=== PATIENT | female | born 2000 | race Caucasian/White ===

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

== ENCOUNTER → 2020-05-03 | Outpatient (CLI) | payer OTHER | LOC: M LDO 17:09 | PROVIDERS: ATTEND Obstetrics & Gynecology | DX: O36.8120 Decreased fetal movements, second trimester, not applicable or unspecified (principal); W19.XXXA Unspecified fall, initial encounter; Y92.481 Parking lot as the place of occurrence of the external cause; Z3A.22 22 weeks gestation of pregnancy | CPT/HCPCS: G0378; G0463 ==

== ENCOUNTER 2020-08-29 07:55 | Inpatient (IN) | payer OTHER ==
[~2020-08-29] VITALS: Ht 175.3 cm; Wt 86.3 kg
[2020-08-29] VITALS (16 sets, daily range): BP systolic 109–130; BP diastolic 57–81
[2020-08-29] MEDS ORDERED: AMOX500T2 PO (08:31)
[2020-08-29] MEDS ORDERED: PRENTAB9 PO (08:31)
[2020-08-29] MEDS ORDERED: PYRI1TAB5 PO (08:31)
[2020-08-29] MEDS ORDERED: AMOXICILLIN 500 MG CAP PO SCH (09:00)
--- NOTE | 2020-08-29 10:21 | HPEPDOC ---
Obstetrical History & Physical General Date of Admission Aug 29, 2020 at 07:55 History of Present Illness 20yo at 39+0wks presenting for social IOL. 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 Denies ctx's, VB, LOF, or DFM. Chief Complaint: Induction of labor Information Provided By: Patient Care Care: Good Care Dating Final EDC: Sep 05, 2020 Final EDC for Daily Update: Sep 05, 2020 Final EDC by: LMP (c/w 11+0wk U/S on [id number]) EGA at Admission: 39 (+0) Antepartum Course Diagnos(e)s Excessive weight gain in Poor social support Height (inches): 69 Pre- weight (lbs.): 145 Admission Weight (lbs.): 188 Change in Weight (lbs.): 43 Past Medical History Past Obstetrical History : Past Obstetrical History: [employer] History: No pertinent history Past Medical History Medical History Recurrent UTIs Surgical History: [place] teeth Family History Significant Family History: Diabetes (PGM) Social History Marital Status: Family situation: Spouse/partner deployed (spouse deploying [id number]) Psychosocial History: No pertinent psych hx * Smoker: non-smoker Alcohol: Denies Drugs: denies Abuse Violence Screening Have you been hit/kicked/slapp: No Have you been sexually assault: No Imunizations Tdap status: current ([id number]) Influenza Status: current ([id number]) Allergies Coded Allergies: No Known Allergies (Unverified , 08/29/20) Medications Scheduled Amoxicillin/Potassium Clav (Amox-Clav 500-125 mg Tablet) 1 Each Tablet, 1 TAB PO BID Phenazopyridine HCl (Pyridium) 200 Mg Tablet, 1 TAB PO TID for urinary discomfort No.137/Iron/Folic Acd ( Vitamin Tablet) 1 Each Tablet, 1 TAB PO DAILY Physical Examination Physical Examination GENERAL: Alert and oriented times three. ABDOMEN: Gravid and non-tender to touch. FETUS: Is vertex (VTX) by sterile vaginal examination (SVE), fetus is vertex (VTX) by Zheng. HEART RATE: well-perfused LUNGS: no exaggerated respiratory effort appreciated : NEFG, SVE /-3, no abnml vaginal discharge, no VB EXTREMITIES: No edema. Laboratory Data 24H LABS Laboratory Tests 2 08/29/20 08:25: Serology Scanned Report Hepatitis B Testing Urine Culture: No Growth Pertinent Laboratoy Data Blood Type: O+ RBC Antibody Screen: Negative HIV: Negative Hepatitis B: Negative Rapid Plasma Reagin: Nonreactive Rubella: Immune Varicella: Immune Chlamydia/Gonorrhea: Negative Group B Streptococcus: Negative Quad Screen Test: Declined Cystic Fibrosis: Negative Anatomy Ultrasound Ultrasound Date: Apr 21, 2020 Placenta Location: Anterior Normal Anatomy: No (b/l choriod plexus cysts) Placenta Previa: No Other Ultrasounds [id number] - choriod plexus cysts resolved, missing anatomy identified and normal Vaginal Examination Dilation: 1cm Effacement: 70% Station: -3 Cervical Consistency: Medium Cervical Position: Posterior Presentation: Cephalic presentation Assessment Heart Rate (FHR): 135 Variability: Moderate Accelerations: Positive Decelerations: None Tocometer Contractions: Yes Frequency: irregular Multi-drug resistant Organism: No history of MDRO Assessment/Plan Assessment Chelita is a 20yo at 39+0wks presenting for IOL for social indications. GBS neg. EFW 3200g. SVE /-3. NST reactive. Plan Admit and orient. Post Splitter and consent. Diet: regular as tolerated until epidural/active labor then transition to clears Group B Streptococcus (GBS) negative. Labs and intravenous (IV) per unit protocol. Counseled on induction of labor (IOL). Lactated Ringers (LR): 125 mL/hr. Anticipate normal spontaneous delivery (). C-S as appropriate. Labor and Delivery Counseling In admission questioning, it became evident that patient's spouse was originally set to deploy on 30NOV but was able to get pushed back to 03DEC. However, patient did not have social support for when spouse leaves. Patient counseled on risk of induction being increased risk of section and we discussed that even if spontaneous labor occurs she could need a section. We discussed that she needs support for the first few weeks at home to include assisting in activities of daily living, assistance with safe care for while battling fatigue, and also driving to/from appointments. We discussed that inductions can take several days and that there is potential that spouse may have to leave before patient and are discharged home from hospital. Ultimately, patient was counseled that just undergoing IOL today would not address her social concerns and that those concerns needed to be addressed CRYSTAL. Patient was offered to go home and work on discharge support plan. After patient and spouse were given time to discuss, she reports that she will have her aomsob-od-him available to drive her to appointments for the first 2 weeks, her unit NCOs would be available to assist with driving, and that possibly her mother would be able to come stay with her starting on [id number]. Patient requested to proceed with IOL today acknowledging increased risk of section than if she had just awaited spontaneous labor. We discussed IOL methods and patient elects to start with cytotec. BRANDON ARTEAGA DO Aug 29, 2020 10:21
[2020-08-29] MEDS ORDERED: AMOX500C PO (10:46)
[2020-08-29] MEDS: miSOPROStol 50 MCG 1/2 TAB (S0191) PO SCH ×3 (10:55→23:38)
[2020-08-29 10:58] LABS: HEMATOCRIT 35.1 % (36.0-47.0); HEMOGLOBIN 11.3 g/dl (12.0-15.5); MEAN CORPUSCULAR HEMOGLOBIN 29.1 pg (27.0-33.0); MEAN CORPUSCULAR HGB CONC 32.2 g/dl (32.0-36.5); MEAN CORPUSCULAR VOLUME 90.5 fl (80.0-96.0); PLATELET COUNT, AUTOMATED 232 10^3/uL (150-450); RED BLOOD COUNT 3.88 10^6/uL (4.00-5.40); WHITE BLOOD COUNT 10.7 10^3/uL (4.0-10.0)
[2020-08-29] MEDS ORDERED: SLF 3 ML SYR IV PRN (18:15)
[2020-08-29] MEDS: AMOXICILLIN 500 MG CAP PO SCH (20:56)
[2020-08-29] MEDS: SLF 3 ML SYR IV SCH (23:39)
[2020-08-30] VITALS (36 sets, daily range): BP systolic 98–150; BP diastolic 55–92
[2020-08-30] MEDS: miSOPROStol 50 MCG 1/2 TAB (S0191) PO SCH (04:00)
[2020-08-30] MEDS: SLF 3 ML SYR IV SCH (06:00)
--- NOTE | 2020-08-30 08:23 | IPNPDOC ---
Obstetrical Progress Note Date of Service Aug 30, 2020 Subjective Patient reports feeling well. She was able to get some sleep overnight. Denies complaints at this time. Objective Vital Signs Date Time Temp Pulse Resp B/P (MAP) Pulse Ox O2 Delivery O2 Flow Rate FiO2 08/30/20 04:37 67 16 114/59 (77) 08/29/20 23:16 98.0 Assessment Heart Rate Tracing: Category I Tocometer Contractions: Yes Frequency: irregular Sterile Vaginal Examination Dilation: 3 cm Effacement (%): 80% Station: -2 Cervical Consistency: Soft Cervical Position: Posterior Postion/Presentation: Cephalic presentation Assessment and Plan Status: Reassuring Group B Streptococcus: Negative Anticipate: Vaginal Delivery Additional Comments Patient has progressed to now 3-4/80/-2 after 3 doses of cytotec. FHRT cat I. Will allow to shower and eat breakfast then start pitocin protocol. Consider AROM once able for additional augmentation of labor. Patient desires to proceed, safe to continue. BRANDON ARTEAGA DO Aug 30, 2020 08:23
[2020-08-30] MEDS ORDERED: OXYTOCIN DRIP 30 UNITS in IV 1 EA IV SCH ×2 (08:30→16:15)
[2020-08-30] MEDS ORDERED: LR 1,000 ML IV SCH (08:30)
[2020-08-30] MEDS: AMOXICILLIN 500 MG CAP PO SCH ×2 (09:48→20:41)
--- NOTE | 2020-08-30 11:19 | IPNPDOC ---
Text Note Date of Service The patient was seen on 08/30/20. NOTE Went to check on progress. A couple late decels seen on the monitor. Cervix: 4/75/-2. AROM performed productive of clear fluid. FHR responded well to exam and scalp stim. There is moderate variability and +accels. Cat II tracing due to previous late decels, which have resolved. IV fluids bolus given. Pitocin at 4mU. Will continue to titrate to effect. Safe to proceed. DO Brandyn VS,Lore, I+O VS, Lore, I+O Vital Signs Date Time Temp Pulse Resp B/P (MAP) Pulse Ox O2 Delivery O2 Flow Rate FiO2 08/30/20 04:37 67 16 114/59 (77) 08/29/20 23:16 98.0 I&O- Last 24 Hours up to 6 AM 08/30/20 06:00 Intake Total 1800 ml Balance 1800 ml REYNALDO RUSHING DO Aug 30, 2020 11:19
[2020-08-30] MEDS ORDERED: FENTANYL 2MCG/ML ROPIVACAINE 0.2% IN 0.9% NACL 100ML IVBAG As Ordered ONE (11:59)
[2020-08-30] MEDS ORDERED: ePHEDrine SULFATE 25 MG/5 ML(5MG/ML) SYRINGE IV PRN (13:00)
[2020-08-30] MEDS ORDERED: REFRIGERATOR IV KEYS XX PRN (13:00)
[2020-08-30] MEDS ORDERED: NALOXONE INJ 0.4MG/1ML VIAL (J2310 PER 1MG) IV PRN (13:00)
[2020-08-30] MEDS ORDERED: EPIDURAL COMMENT XX SCH (13:00)
[2020-08-30] MEDS ORDERED: FENTANYL/ROPIVACAINE/NACL BAG 100 ML EPIDURAL SCH (13:00)
[2020-08-30] MEDS ORDERED: ONDANSETRON 4MG/2ML VIAL IV PRN ×2 (13:00→16:00)
[2020-08-30] MEDS ORDERED: LACTATED RINGER'S 1000 ML IV PRN (13:00)
[2020-08-30] MEDS ORDERED: diphenhydrAMINE 50MG/ML VIAL (J1200) IV PRN (13:00)
[2020-08-30] MEDS ORDERED: EPIDURAL/PCA KEYS XX PRN (13:00)
--- NOTE | 2020-08-30 14:48 | IPNPDOC ---
Text Note Date of Service The patient was seen on 08/30/20. NOTE Questionable repetitive variable vs late decels on monitor. Patient received epidural approximately 2 hours ago. Blood pressure is stable. Cervix: 6/C/0. heart rate acceleration with scalp stimulation. Positional changes and IV fluid bolus initiated. FHR recovered after pitocin was decreased from 6 to 3mU. Early decels present. Transitioning into active phase labor. Will need to monitor tolerance closely. All patient questions answered. Reynaldo Ahumada DO VS,Lore, I+O VS, Lore, I+O Vital Signs Date Time Temp Pulse Resp B/P (MAP) Pulse Ox O2 Delivery O2 Flow Rate FiO2 08/30/20 04:37 67 16 114/59 (77) 08/29/20 23:16 98.0 I&O- Last 24 Hours up to 6 AM 08/30/20 06:00 Intake Total 1800 ml Balance 1800 ml REYNALDO AHUMADA DO Aug 30, 2020 14:48
[2020-08-30] MEDS ORDERED: ACETAMINOPHEN TAB 650MG DOSE (2X325MG) PO PRN (16:00)
[2020-08-30] MEDS ORDERED: DOCUSATE SODIUM 100 MG CAP PO PRN (16:00)
[2020-08-30] MEDS ORDERED: ACETAMINOPHEN 500 MG TAB PO PRN (16:00)
[2020-08-30] MEDS ORDERED: MEASLES,MUMPS,RUBELLA VACCINE INJ (MMR-II) (90707) SC SCH (16:00)
[2020-08-30] MEDS ORDERED: BENZOCAINE 20% HEMORRHOIDAL OINTMENT 28GM TUBE TOP PRN (16:00)
[2020-08-30] MEDS ORDERED: RHOGAM 300 MCG (1500 IU) INJ (J2790) IM SCH (16:00)
--- NOTE | 2020-08-30 16:07 | DNPDOC ---
[facility] Delivery Note Delivery Note DATE OF DELIVERY: 30Aug2020 at ~1530 PREDELIVERY DIAGNOSIS: 39+1 weeks gestation and social IOL POST DELIVERY DIAGNOSIS: Delivered. PROCEDURE: Spontaneous vaginal delivery DIE MAKER BENCH STAMPING: Dr. Ahumada ANESTHESIA: Epidural. ESTIMATED BLOOD LOSS: 400 mL. FINDINGS: 8 pound 5 ounce male infant, Score 9/9, loose nuchal cord X1 DELIVERY SUMMARY: Chelita progressed rapidly to C/C/+2 and felt a strong urge to push. The bed was broken down and she was prepped for delivery. With excellent effort over about a 20 minute, her baby delivered. Presentation was AMANDA with re stitution to LOT. The right anterior shoulder delivered with gentle traction followed by the remainder of the body. There was a loose nuchal cord that was delivered through and reduced manually. The was dried and stimulated on the field and a bulb suction was used. The infant was placed on the maternal abdomen. The three vessel umbilical cord was then clamped and cut by the FOB after appropriate time delay and under my direction. Third stage was completed with gentle traction on on the cord and it was productive of an intact placenta. The uterus was firmed with massage and pitocin was administered IV bolus. Inspection of the cervix, vagina, labia, and perineum revealed bilateral sublabial lacerations. These lacerations were all repaired with 3-0 vicryl suture in the usual fashion. There was excellent cosmesis and hemostasis after the repairs. The fundus was palpated again and was firm. Sponge, instrument, and needle counts were correct X2. Mother and stable when I left the room. DO СЕРГЕЙ Sierra CHRISTOPHER J. DO Aug 30, 2020 16:07
[2020-08-30] MEDS: IBUPROFEN 800 MG TAB PO PRN (18:23)
[2020-08-30 19:01] LABS: HEMATOCRIT 32.7 % (36.0-47.0); HEMOGLOBIN 10.4 g/dl (12.0-15.5); MEAN CORPUSCULAR HEMOGLOBIN 29.1 pg (27.0-33.0); MEAN CORPUSCULAR HGB CONC 31.8 g/dl (32.0-36.5); MEAN CORPUSCULAR VOLUME 91.3 fl (80.0-96.0); PLATELET COUNT, AUTOMATED 212 10^3/uL (150-450); RED BLOOD COUNT 3.58 10^6/uL (4.00-5.40); WHITE BLOOD COUNT 17.6 10^3/uL (4.0-10.0)
[2020-08-31] MEDS: IBUPROFEN 600MG TAB PO PRN (05:34)
[2020-08-31 06:24] VITALS: BP 129/59
--- NOTE | 2020-08-31 08:07 | IPNPDOC ---
Progress Note Date of Service: Aug 31, 2020 Progress Note 20 yo G1 now P1 PPD#1 s/p uncomplicated on 31Aug2020 at ~1500 after being admitted for a IOL for social reasons. Overnight, Chelita reports doing well. She is ambulating, voiding spontaneously, and tolerating a regular diet. Lochia is minimal. Vitals - VSS, afebrile General - AAOX3, sitting up in bed, NAD Abdomen - Fundus firm at U-2. No fundal tenderness Extremities - No edema Ms. Snider is doing well and is making an appropriate recovery. If she continues to meet all criteria she will be a candidate for discharge tomorrow. Reynaldo Ahumada DO VS, I&O, 24H, Fishbone Vital Signs/I&O Vital Signs Date Time Temp Pulse Resp B/P (MAP) Pulse Ox O2 Delivery O2 Flow Rate FiO2 08/31/20 06:24 99.0 95 17 129/59 (82) 08/30/20 19:35 98 I&O- Last 24 Hours up to 6 AM 08/31/20 06:00 Intake Total 3539.2 ml Output Total 1400 ml Balance 2139.2 ml Laboratory Data 24H LABS Laboratory Tests 2 08/30/20 18:53: Nucleated Red Blood Cells % (auto) 0.0 CBC/BMP Laboratory Tests 08/30/20 18:53 REYNALDO AHUMADA DO Aug 31, 2020 08:07
[2020-08-31] MEDS: AMOXICILLIN 500 MG CAP PO SCH ×2 (08:54→20:56)
[2020-08-31] MEDS: PRENATAL VITAMINS CHEWABLE TABLET PO SCH (08:54)
[2020-08-31] MEDS ORDERED: INFLUENZA QUADRIVALENT PF VACCINE 0.5ML SYRINGE IM ONE (09:00)
[2020-08-31] MEDS: IBUPROFEN 800 MG TAB PO PRN (14:53)
[2020-08-31 18:04] VITALS: BP 118/59
[2020-09-01] MEDS: IBUPROFEN 600MG TAB PO PRN (05:51)
[2020-09-01 06:11] VITALS: BP 121/66
[2020-09-01] MEDS ORDERED: AMER20OI TOP (07:09)
[2020-09-01] MEDS ORDERED: DOCU100C16 PO (07:09)
[2020-09-01] MEDS ORDERED: IBUP-1022 PO (07:09)
[2020-09-01] MEDS: PRENATAL VITAMINS CHEWABLE TABLET PO SCH (08:58)
--- NOTE | 2020-09-01 13:48 | DSES ---
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 She had an epidural in place. Spontaneous vaginal delivery of a male 8 pounds 5 ounces, of 9 and 9 at one and five minutes respectively. Cord wrapped around the neck x1. She had bilateral labial tears, which were repaired in the usual fashion. DISCHARGE VITAL SIGNS: Blood pressure on discharge 121/66, respirations 16, pulse 91, temperature 98.1. LABORATORY DATA: Her admitting hemoglobin 11.3, hematocrit 35.1, and platelets 232,000. Discharge hemoglobin 10.4, hematocrit 32.7, and platelets were 212,000. DISCHARGE DISPOSITION: We discussed phlebitis, cystitis, mastitis, metritis, cellulitis, diet, exercise, pain management; perineal, breast, and wound care. Medications are to be picked up at [place]. Six week checkup at [facility]. All questions were answered, 20 minute discussion. Patient and baby were discharged as a unit.
== END 2020-09-01 12:50 | disposition home or self-care (01) | DRG 807 ==
LOC: M LDI 07:55 → M OBS 08-30 19:38
PROVIDERS: ADMIT Registered Nurse; ATTEND Obstetrics & Gynecology
PROC: 3E0P7GC Introduction of Other Therapeutic Substance into Female Reproductive, Via Natural or Artificial Opening (ICD-10-PCS; 2020-08-29)
PROC: 10E0XZZ Delivery of Products of Conception, External Approach (ICD-10-PCS; principal; 2020-08-30)
PROC: 0HQ9XZZ Repair Perineum Skin, External Approach (ICD-10-PCS; 2020-08-30)
PROC: 10907ZC Drainage of Amniotic Fluid, Therapeutic from Products of Conception, Via Natural or Artificial Opening (ICD-10-PCS; 2020-08-30)
DX: O26.03 Excessive weight gain in pregnancy, third trimester (principal); Z37.0 Single live birth; Z3A.39 39 weeks gestation of pregnancy; O76 Abnormality in fetal heart rate and rhythm complicating labor and delivery; O70.0 First degree perineal laceration during delivery; O69.81X0 Labor and delivery complicated by cord around neck, without compression, not applicable or unspecified

== ENCOUNTER 2021-02-13 08:15 | Emergency (ER) | payer OTHER ==
[~2021-02-13] VITALS: Ht 175.3 cm; Wt 73.2 kg
[~2021-02-13 08:15] MED LIST: AMER20OI TOP; AMOX500C PO; AMOX500T2 PO; DOCU100C16 PO; IBUP-1022 PO; PRENTAB9 PO; PYRI1TAB5 PO
[2021-02-13] MEDS ORDERED: DIFL150T PO (10:01)
[2021-02-13 10:49] VITALS: BP 107/66
== END 2021-02-13 11:04 | disposition home or self-care (01) ==
LOC: M ED 08:15
DX: B37.3 Candidiasis of vulva and vagina (principal); N93.9 Abnormal uterine and vaginal bleeding, unspecified; Z97.5 Presence of (intrauterine) contraceptive device; Z87.440 Personal history of urinary (tract) infections

== ENCOUNTER 2021-06-21 09:10 | Inpatient (IN) | payer OTHER ==
[~2021-06-21] VITALS: Ht 175.3 cm; Wt 71.8 kg
[~2021-06-21 09:10] MED LIST changes: +DIFL150T PO
[2021-06-21 09:53] LABS: HEMOGLOBIN 13.3 g/dl (12.0-15.5); MEAN CORPUSCULAR HEMOGLOBIN 28.9 pg (27.0-33.0); MEAN CORPUSCULAR HGB CONC 33.3 g/dl (32.0-36.5); PLATELET COUNT, AUTOMATED 249 10^3/uL (150-450); WHITE BLOOD COUNT 6.5 10^3/uL (4.0-10.0)
[2021-06-21 10:20] LABS: HCG, SERUM QUALITATIVE NEGATIVE (NEGATIVE)
[2021-06-21 10:27] LABS: ACETAMINOPHEN LEVEL < 2.0 UG/ML (10.0-30.0); ALBUMIN 3.9 GM/DL (3.2-5.2); ALT/SGPT 16 U/L (12-78); BILIRUBIN,DIRECT < 0.1 MG/DL (0.0-0.2); BILIRUBIN,TOTAL 0.4 MG/DL (0.2-1.0); BLOOD UREA NITROGEN 11 MG/DL (7-18); CALCIUM LEVEL 8.9 MG/DL (8.5-10.1); CARBON DIOXIDE LEVEL 25 MEQ/L (21-32); CHLORIDE LEVEL 108 MEQ/L (98-107); CREATININE FOR GFR 0.71 MG/DL (0.55-1.30); ETHYL ALCOHOL (ETHANOL) < 0.003 % (0.000-0.010); GLOMERULAR FILTRATION RATE > 60.0 (>60); GLUCOSE, FASTING 89 MG/DL (70-100); POTASSIUM SERUM 3.9 MEQ/L (3.5-5.1); SALICYLATE LEVEL < 1.7 MG/DL (5.0-30.0); SODIUM LEVEL 140 MEQ/L (136-145)
[2021-06-21] MEDS ORDERED: CEPH500C PO (11:03)
[2021-06-21 11:34] LABS: AMPHETAMINES LEVEL URINE NEGATIVE (NEGATIVE); BARBITURATES URINE NEGATIVE (NEGATIVE); BENZODIAZEPINES URINE NEGATIVE (NEGATIVE); CANNABINOIDS URINE NEGATIVE (NEGATIVE); COCAINE METABOLITE URINE NEGATIVE (NEGATIVE); METHADONE URINE NEGATIVE (NEGATIVE); OPIATES URINE NEGATIVE (NEGATIVE); PHENCYCLIDINE URINE NEGATIVE (NEGATIVE)
[2021-06-21] MEDS ORDERED: ACETAMINOPHEN TAB 650MG DOSE (2X325MG) PO ONE ×2 (13:05→23:00)
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
[2021-06-21] MEDS ORDERED: HOME MED LIST COMPLETE! XX SCH (18:15)
[2021-06-22 03:27] LABS: RSV AMPLIFICATION NEGATIVE (NEGATIVE)
[2021-06-22] MEDS ORDERED: traZODone 50 MG TAB PO PRN ×2 (03:50→04:15)
[2021-06-22] MEDS ORDERED: MAALOX 30 ML SUSP *UDC PO PRN ×2 (03:50→04:15)
[2021-06-22] MEDS ORDERED: MOM 30ML SUSPENSION UDC PO PRN ×2 (03:50→04:15)
[2021-06-22] MEDS ORDERED: ACETAMINOPHEN TAB 650MG DOSE (2X325MG) PO PRN ×2 (03:50→04:15)
[2021-06-22] MEDS ORDERED: hydrOXYzine 50 MG TAB PO PRN ×2 (03:55→04:15)
[2021-06-22 04:23] VITALS: BP 107/58
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
[2021-06-22] MEDS: BACTRIM 160MG/800MG DS TAB PO SCH ×2 (10:08→21:47)
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
[2021-06-22 17:59] VITALS: BP 126/62
[2021-06-23 06:00] VITALS: BP 143/66
[2021-06-23] MEDS: BACTRIM 160MG/800MG DS TAB PO SCH (09:41)
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
== END 2021-06-23 13:00 | disposition home or self-care (01) | DRG 881 ==
LOC: M ED 09:10 → M PSY 06-22 03:46 → M ED 06-22 04:08 → M PSY 06-22 15:44
PROVIDERS: ADMIT Student in an Organized Health Care Education/Training Program; ATTEND Psychiatry & Neurology Psychiatry
DX: F43.21 Adjustment disorder with depressed mood (principal); Z87.891 Personal history of nicotine dependence

== ENCOUNTER 2021-10-25 20:37 | Emergency (ER) | payer OTHER ==
[~2021-10-25] VITALS: Ht 175.3 cm; Wt 77.3 kg
[~2021-10-25 20:37] MED LIST changes: +CEPH500C PO
[2021-10-26 04:44] LABS: APPEARANCE, URINE CLEAR (CLEAR); BACTERIA, URINE AUTO NEGATIVE (NEGATIVE); BILIRUBIN, URINE AUTO 1+ (NEGATIVE); BLOOD, URINE BLOOD NEGATIVE (NEGATIVE); COLOR, URINE YELLOW (YELLOW); GLUCOSE, URINE (UA) AUTO NEGATIVE (NEGATIVE); KETONE, URINE AUTO 1+ mg/dL (NEGATIVE); LEUKOCYTE ESTERASE, URINE AUTO NEGATIVE (NEGATIVE); MUCUS, URINE LARGE (NEGATIVE); NITRITE, URINE AUTO NEGATIVE (NEGATIVE); PROTEIN, URINE AUTO 1+ mg/dL (NEGATIVE); RBC, URINE AUTO 2 /HPF (0-3); SPECIFIC GRAVITY URINE AUTO 1.035 (1.002-1.035); SQUAMOUS EPITHELIAL CELL UR AU 5 /HPF (0-6); WBC, URINE AUTO 3 /HPF (0-3)
[2021-10-26] MEDS ORDERED: METOCLOPRAMIDE 5 MG TAB PO ONE (07:35)
[2021-10-26] MEDS ORDERED: NS 1,000 ML IV ONE (07:40)
[2021-10-26] MEDS ORDERED: METOCLOPRAMIDE INJ 10MG/2ML VIAL (J2765 PER 1) IV ONE (07:40)
[2021-10-26 08:00] LABS: BASO % 0.1 % (0.0-1.0); HEMATOCRIT 39.7 % (36.0-47.0); HEMOGLOBIN 13.5 g/dl (12.0-15.5); LYMPH # 0.8 10^3/uL (1.5-5.0); LYMPH % 10.6 % (24.0-44.0); MEAN CORPUSCULAR HEMOGLOBIN 29.7 pg (27.0-33.0); MEAN CORPUSCULAR VOLUME 87.3 fl (80.0-96.0); MONO # 0.4 10^3/uL (0.0-0.8); PLATELET COUNT, AUTOMATED 221 10^3/uL (150-450); RED BLOOD COUNT 4.55 10^6/uL (4.00-5.40); WHITE BLOOD COUNT 7.2 10^3/uL (4.0-10.0)
[2021-10-26 08:28] LABS: ALBUMIN 3.7 GM/DL (3.2-5.2); ALT/SGPT 17 U/L (12-78); BILIRUBIN,TOTAL 0.5 MG/DL (0.2-1.0); BLOOD UREA NITROGEN 14 MG/DL (7-18); CALCIUM LEVEL 8.5 MG/DL (8.5-10.1); CARBON DIOXIDE LEVEL 25 MEQ/L (21-32); CHLORIDE LEVEL 105 MEQ/L (98-107); CREATININE FOR GFR 0.79 MG/DL (0.55-1.30); GLOMERULAR FILTRATION RATE > 60.0 (>60); GLUCOSE, FASTING 109 MG/DL (70-100); POTASSIUM SERUM 3.5 MEQ/L (3.5-5.1); SODIUM LEVEL 139 MEQ/L (136-145)
[2021-10-26] MEDS ORDERED: ONDA4TAB6 PO (09:21)
[2021-10-26 09:59] VITALS: BP 122/68
== END 2021-10-26 10:01 | disposition home or self-care (01) ==
LOC: M ED 20:37
DX: O99.280 Endocrine, nutritional and metabolic diseases complicating pregnancy, unspecified trimester (principal); E86.0 Dehydration; Z87.891 Personal history of nicotine dependence; Z3A.00 Weeks of gestation of pregnancy not specified
CPT/HCPCS: 76801; 76817; 80053; 81001; 84702; 85025; 86850; 86900; 86901; 93976; 96361; 96374; 99284; J2765

== ENCOUNTER 2022-05-30 10:50 | Emergency (ER) | payer OTHER ==
[~2022-05-30] VITALS: Ht 175.3 cm; Wt 81.1 kg
[~2022-05-30 10:50] MED LIST changes: +ONDA4TAB6 PO
[2022-05-30] MEDS ORDERED: ONDANSETRON 4MG 2ML VIAL IV ONE (11:50)
[2022-05-30] MEDS ORDERED: NS 1,000 ML IV ONE (11:50)
[2022-05-30] MEDS ORDERED: ACET-907 PO (12:13)
[2022-05-30] MEDS ORDERED: PREN29CH2 PO (12:13)
[2022-05-30 12:21] LABS: BASO % 0.2 % (0.0-1.0); EOS % 0.1 % (0.0-3.0); HEMATOCRIT 37.6 % (36.0-47.0); HEMOGLOBIN 12.6 g/dl (12.0-15.5); LYMPH # 0.8 10^3/uL (1.5-5.0); LYMPH % 7.7 % (24.0-44.0); MEAN CORPUSCULAR HEMOGLOBIN 30.2 pg (27.0-33.0); MEAN CORPUSCULAR HGB CONC 33.5 g/dl (32.0-36.5); MEAN CORPUSCULAR VOLUME 90.2 fl (80.0-96.0); MONO # 0.4 10^3/uL (0.0-0.8); MONO % 3.8 % (2.0-8.0); NEUTROPHILS # 8.5 10^3/uL (1.5-8.5); NEUTROPHILS % 87.7 % (36.0-66.0); PLATELET COUNT, AUTOMATED 230 10^3/uL (150-450); RED BLOOD COUNT 4.17 10^6/uL (4.00-5.40); WHITE BLOOD COUNT 9.7 10^3/uL (4.0-10.0)
[2022-05-30 12:53] LABS: ALT/SGPT 16 U/L (12-78); BILIRUBIN,DIRECT < 0.1 MG/DL (0.0-0.2); BILIRUBIN,TOTAL 0.3 MG/DL (0.2-1.0); LIPASE 88 U/L (73-393); TOTAL PROTEIN 6.7 GM/DL (6.4-8.2)
[2022-05-30 13:37] LABS: BACTERIA, URINE SMALL AMOUNT; HYALINE CAST, URINE NONE SEEN /lpf (0-1); SQUAMOUS EPITHELIAL CELL URINE MOD AMOUNT /hpf (SMALL AMT)
[2022-05-30 14:52] VITALS: BP 110/57
== END 2022-05-30 14:54 | disposition home or self-care (01) ==
LOC: M ED 10:50
DX: O21.9 Vomiting of pregnancy, unspecified (principal); Z3A.17 17 weeks gestation of pregnancy
CPT/HCPCS: 76815; 80047; 80076; 81000; 81015; 83690; 85025; 87086; 87486; 87581; 87633; 87798; 96374; 99284; J2405

== ENCOUNTER 2022-07-22 13:51 | Outpatient (CLI) | payer OTHER ==
[~2022-07-22] VITALS: Ht 175.3 cm; Wt 89.8 kg
[~2022-07-22 13:51] MED LIST changes: +ACET-907 PO; +PREN29CH2 PO
[2022-07-22 14:18] VITALS: BP 135/77
[2022-07-22] MEDS ORDERED: HOME MED LIST COMPLETE! XX SCH (14:20)
[2022-07-22 15:42] VITALS: BP 133/74
== END 2022-07-22 15:56 | disposition home or self-care (01) ==
LOC: M LDO 13:51
PROVIDERS: ATTEND Advanced Practice Midwife
DX: O23.592 Infection of other part of genital tract in pregnancy, second trimester (principal); Z3A.25 25 weeks gestation of pregnancy
CPT/HCPCS: 59025; 81000; 81015; 87088; 87186; G0463